=== PATIENT | male | born 1975 | race Hispanic/Latino ===

== ENCOUNTER 2018-12-15 13:11 | Inpatient (IN) | payer OTHER ==
[2018-12-15] VITALS (7 sets, daily range): BP systolic 95–117; BP diastolic 48–63
[~2018-12-15] VITALS: Ht 170.2 cm; Wt 117.5 kg
[2018-12-15] MEDS ORDERED: CEFTRIAXONE SOD 1 GM/NS 50 ML 50 ML IV ONE (13:30)
[2018-12-15] MEDS ORDERED: SODIUM CHLORIDE 0.9% 1000ML 2,000 ML IV STA (13:30)
[2018-12-15] MEDS ORDERED: ACETAMINOPHEN 325 MG TAB PO ONE (13:30)
[2018-12-15] MEDS ORDERED: AZITHROMYCIN 500MG/NS 250 ML 250 ML IV ONE (13:30)
[2018-12-15 13:49] LABS: BASOPHILS % 0.3 % (0.0-1.0); EOSINOPHILS # (AUTO) 0.1 (0.0-0.4); EOSINOPHILS % 0.7 % (0.0-6.0); HEMOGLOBIN 7.4 g/dL (14.0-18.0); LYMPHOCYTES # (AUTO) 0.8 (1.0-3.2); LYMPHOCYTES % 10.7 % (18.0-39.1); MEAN CORPUSCULAR HEMOGLOBIN 29.6 pg (28-32); MEAN CORPUSCULAR HGB CONC 32.2 g/dL (31-35); MONOCYTES # (AUTO) 0.3 (0.2-0.8); MONOCYTES % 3.4 % (4.4-11.3); NEUTROPHILS # (AUTO) 6.3 (2.1-6.9); NEUTROPHILS % 84.1 % (38.7-80.0); PLATELET COUNT 110 x10e3/uL (140-360); RED CELL DISTRIBUTION WIDTH 17.5 % (11.7-14.4)
[2018-12-15 13:52] LABS: BILIRUBIN,URINE SMALL (NEGATIVE); CLARITY,URINE CLEAR (CLEAR); COLOR,URINE YELLOW (YELLOW); KETONES,URINE NEGATIVE (NEGATIVE); LEUKOCYTE ESTERASE ,URINE TRACE (NEGATIVE); NITRITE,URINE NEGATIVE (NEGATIVE); PROTEIN,URINE DIPSTICK 1+ (NEGATIVE); URINE UROBILINOGEN 2 mg/dL (0.2 - 1)
[2018-12-15 14:01] LABS: INR 1.2; PROTHROMBIN TIME 15.8 seconds (11.9-14.5)
[2018-12-15 14:02] LABS: ALBUMIN 2.5 g/dL (3.5-5.0); ALBUMIN/GLOBULIN RATIO 0.6 (0.8-2.0); CALCIUM 8.3 mg/dL (8.4-10.2); CREATININE, SERUM 1.35 mg/dL (0.72-1.25)
[2018-12-15 14:07] LABS: CREATINE KINASE MB 3.1 ng/mL (0-4.3)
[2018-12-15 14:11] LABS: AMORPHOUS SEDIMENT,URINE MODERATE (FEW); BACTERIA,URINE MODERATE /HPF; EPITHELIAL CELLS,URINE FEW /LPF; RBC,URINE 0-5 /HPF (0-5)
--- NOTE | 2018-12-15 14:15 | NUR ---
Patient with NS bolus infusing with antibiotics; VS continuously monitor; SBP 80-90s; will continue to monitor.
--- NOTE | 2018-12-15 14:37 | Diagnostic Imaging Report ---
EXAMINATION: CHEST SINGLE (PORTABLE) INDICATION: Cough COMPARISON: None FINDINGS: LINES/TUBES:EKG leads overlie the chest. LUNGS:The lungs are moderately inflated. No focal consolidation or pulmonary edema. PLEURA:No pleural effusion or pneumothorax. MEDIASTINUM:The cardiomediastinal silhouette is at the upper limits of normal in size. BONES/SOFT TISSUES:No acute osseous injury. ABDOMEN:No free air under the diaphragm. IMPRESSION: No focal pneumonia or pulmonary edema. Signed by: Claire Holliday MD on 12/15/2018 2:34 PM
[2018-12-15] MEDS ORDERED: PANTOPRAZOLE 40 MG 10ML VIAL IV ONE (14:46)
[2018-12-15] MEDS ORDERED: SODIUM CHLORIDE 0.9% 1000ML 1,000 ML IV STA (14:53)
[2018-12-15] MEDS ORDERED: FUROSEMIDE INJ 10 MG/ML 2 ML VIAL IV PRN (15:00)
[2018-12-15] MEDS ORDERED: VANCOMYCIN 1GM/NS 250 ML 250 ML IV ONE (15:00)
[2018-12-15] MEDS ORDERED: SODIUM CHLORIDE 0.9% 250ML 250 ML IV ONE (15:00)
--- NOTE | 2018-12-15 15:11 | NUR ---
Patient resting in bed, VS continuously monitored; BP soft, NS boluses infusing. Will continue to monitor
[2018-12-15] MEDS ORDERED: AZITHROMYCIN 500MG/SOD CHL 0.9% 250ML BAG IV SCH (15:45)
[2018-12-15] MEDS ORDERED: CEFTRIAXONE SOD 1 GRAM/0.9% SOD CHL 50ML BAG IV SCH (15:45)
--- NOTE | 2018-12-15 15:45 | NUR ---
Patient reassessed due to complaints of increased chest heaviness; patient now with b/l crackles in lung bases. Dr. Patel made aware. EKG performed
[2018-12-15] MEDS ORDERED: CEFEPIME 2 GM/NS 0.9% 100 ML 100 ML IV SCH (16:00)
[2018-12-15 16:33] LABS: BASOPHILS % 0.5 % (0.0-1.0); EOSINOPHILS % 0.8 % (0.0-6.0); HEMATOCRIT 18.8 % (38.2-49.6); LYMPHOCYTES # (AUTO) 0.5 (1.0-3.2); LYMPHOCYTES % 14.1 % (18.0-39.1); MEAN CORPUSCULAR HEMOGLOBIN 29.7 pg (28-32); MEAN CORPUSCULAR HGB CONC 31.9 g/dL (31-35); MEAN CORPUSCULAR VOLUME 93.1 fL (81-99); MONOCYTES # (AUTO) 0.2 (0.2-0.8); MONOCYTES % 4.7 % (4.4-11.3); NEUTROPHILS % 79.4 % (38.7-80.0); PLATELET COUNT 64 x10e3/uL (140-360); RED BLOOD COUNT 2.02 x10e6/uL (4.3-5.7); RED CELL DISTRIBUTION WIDTH 17.5 % (11.7-14.4)
--- OUTSIDE RECORDS SUMMARY | 2018-12-15 16:33 | XMS REPORT ---
Author Author [facility] Address Unknown Phone Unavailable Care Team Providers Care Splicing Supervisor Name Role Phone Tre DAVIS Unavailable Unavailable Problems This patient has no known problems. Allergies, Adverse Reactions, Alerts This patient has no known allergies or adverse reactions. Medications This patient has no known medications. Results Test Description Test Time Test Comments Text Results Atomic Results Result Comments CHEST SINGLE (PORTABLE) 2018-12-15 14:33:[address] [address] Patient Name: LONNIE LOPEZ MR #: [id number] : 1975 Age/Sex: 43/M Req #: [id number] Adm Physician: Ordered by: KARINE MEDRANO NP Report #: [id number] Location: ER Room/Bed: Procedure: [id number] DX/CHEST SINGLE (PORTABLE) Exam Date: 12/15/18 Exam Time: 1355 REPORT STATUS: Signed EXAMINATION: CHEST SINGLE (PORTABLE) INDICAT ION: Cough COMPARISON: None FINDINGS: LINES/TUBES:EKG leads overlie the chest. LUNGS:The lungs are moderately inflated. No focal consolidation or pulmonary edema. PLEURA:No pleural effusion or pneumothorax. MEDIASTINUM:The cardiomediastinal silhouette is at the upper limits of normal in size. BONES/SOFT TISSUES:No acute osseous injury. ABDOMEN:No free air under the diaphragm. IMPRESSION: No focal pneumonia or pulmonary edema. Signed by: David Boucher MD on 12/15/2018 2:34 PM Dictated By: DAVID BOUCHER MD [id number] Transcribed By: VIPUL on 12/15/18 1434 COPY TO: KARINE MEDRANO NP
--- NOTE | 2018-12-15 16:45 | NUR ---
Central line placement attempted by Dr. Patel; patient unable to tolerate positioning. IR consulted
--- NOTE | 2018-12-15 17:05 | NUR ---
Bedside report to SHIRIN Bradford; patient condition guarded at this time; Patient AOx4, able to transfer to bed. Tachypneic, RR 28; Blood consent sent with patient due to unable to complete. No questions at this time.
--- NOTE | 2018-12-15 17:13 | Diagnostic Imaging Report ---
EXAM: CT Chest WITH contrast- Pulmonary Embolism Protocol INDICATION: Shortness of breath, chest pain COMPARISON: Chest radiograph of the same day TECHNIQUE: Chest was scanned utilizing a multidetector helical scanner from the lung apex through the level of the diaphragm after administration of IV contrast. Thin section reconstructions were obtained with special concentration on the pulmonary arteries. Coronal and sagittal reformations were obtained. Pulmonary embolism protocol was performed. IV CONTRAST: 100 cc of Isovue 370 RADIATION DOSE: Total DLP: 572.4 mGy*cm Dose modulation, iterative reconstruction, and/or weight based adjustment of the mA/kV was utilized to reduce the radiation dose to as low as reasonably achievable. COMPLICATIONS: None FINDINGS: LINES/ TUBES: None. PULMONARY ARTERIES: No filling defect is identified within the pulmonary arteries to the segmental level. The subsegmental pulmonary arteries are not well opacified. Main pulmonary artery measures 3.2cm in diameter. LUNGS AND AIRWAYS: The central airways are patent. Diffuse bilateral groundglass opacities and smooth interlobular septal thickening consistent with interstitial and air space pulmonary edema. No focal consolidation. PLEURA: Small right pleural effusion. No left pleural effusion. No pneumothorax. HEART AND MEDIASTINUM: Partially visualized are gland appears unremarkable. No supraclavicular lymphadenopathy. No mediastinal or hilar lymphadenopathy. No axillary or internal mammary lymphadenopathy. The heart is mildly enlarged.. No pericardial effusion. Scattered atherosclerotic calcifications of the coronary arteries. No evidence of right heart strain. UPPER ABDOMEN: Limited images of the upper abdomen demonstrate no focal abnormalities of the partially visualized liver or spleen. Other intra-abdominal organs are not visualized. BONES: No acute osseous injury. No suspicious lytic or blastic lesions. SOFT TISSUES: Unremarkable. IMPRESSION: No pulmonary embolism. Severe interstitial and airspace pulmonary edema, mild cardiomegaly, and small right pleural effusion. Scattered coronary artery atherosclerotic calcifications. Signed by: Claire Holliday MD on 12/15/2018 5:10 PM
[2018-12-15] MEDS ORDERED: NOREPINEPHRINE 8 MG/D5W 250 ML 250 ML IV PRN (17:15)
--- NOTE | 2018-12-15 17:15 | NUR ---
RECEIVED PT AAOX3 AND RESPONDING APPROPRIATELY, CONSENT FOR BLOOD AND CENTRAL LINE SIGNED AT THIS TIME
[2018-12-15 17:24] LABS: CREATINE KINASE MB 4.1 ng/mL (0-5.0)
--- NOTE | 2018-12-15 17:30 | NUR ---
RADIOLOGY AT BEDSIDE CENTRAL LINE BEING DONE
[2018-12-15 17:44] LABS: HIV 1&2 AB SCREEN NON-REACTIVE (NONREACTIVE)
--- NOTE | 2018-12-15 18:10 | NUR ---
CONSULTS CALLED TO CONSULEO GROSSMAN AND LEFT FOR ELEVATED TROPONIN AND NEW CONSULT
--- NOTE | 2018-12-15 18:14 | Diagnostic Imaging Report ---
Examination: Single AP view of the chest. COMPARISON: None. INDICATION: Line placement DISCUSSION: Lines/tubes: Right IJ catheter with tip overlying the cavoatrial junction. Lungs: Pulmonary edema Pleura: No pleural effusion or pneumothorax. Heart and mediastinum: The heart and the mediastinum are unremarkable. Bones and soft tissues: No acute bony abnormalities. IMPRESSION: Pulmonary edema Right IJ catheter with tip overlying the cavoatrial junction Signed by: Dr. Ryan Alvarenga M.D. on 12/15/2018 6:11 PM
[2018-12-15 18:17] LABS: % IRON SATURATION 11 % (15-50); IRON 22 ug/dL (65-175); TOTAL IRON BINDING CAPACITY 197 ug/dL (261-478); TRANSFERRIN 141 mg/dL (174-364)
[2018-12-15] MEDS: PANTOPRAZOLE 40 MG 10ML VIAL IV SCH (18:33)
[2018-12-15] MEDS: SODIUM CHLORIDE 0.9% 1000ML 1,000 ML IV SCH (18:33)
[2018-12-15] MEDS ORDERED: FUROSEMIDE INJ 10 MG/ML 2 ML VIAL IV ONE (18:45)
[2018-12-15 18:54] LABS: ABG HCO3 20 mmol/L (23-28); ABG PCO2 29 mmHg (41-51); ABG PH 7.45 (7.31-7.41); ABG PO2 60 mmHg (80-105)
[2018-12-15] MEDS: METOPROLOL TARTRATE 25 MG TAB PO SCH (19:00)
--- NOTE | 2018-12-15 19:00 | NUR ---
Bedside report received from Lorena CARPIO. Pt received sitting up in bed AAOx3, no pain or discomfort reported at this time. Care plan reviewed.
--- NOTE | 2018-12-15 19:25 | NUR ---
Dr. Farrell returned called. Pt status discussed. New orders received (refer to food service order clerk as needed for further information).
[2018-12-15] MEDS: CEFTRIAXONE SOD 1 GM/NS 50 ML 50 ML IV SCH (19:30)
[2018-12-15] MEDS: VANCOMYCIN HCL 1.5 GM in SODIUM CHLORIDE 0.9% 250ML 300 ML IV SCH (19:41)
[2018-12-15] MEDS ORDERED: SODIUM CHLORIDE 0.9% 250ML 250 ML ONE (19:57)
[2018-12-15 20:49] LABS: HYPOCHROMASIA MODERATE; LYMPHOCYTES % (MANUAL) 10 % (19-48); MONOCYTES % (MANUAL) 5 % (3.4-9.0); NEUTROPHILS % (MANUAL) 82 % (40-74); PLATELET ESTIMATE SLIGHTLY DECREASED; PLATELET MORPHOLOGY COMMENT NORMAL; RBC MORPHOLOGY COMMENT NORMAL
[2018-12-15 21:00] LABS: RETICULOCYTE % 4.4 % (0.8-2.2)
[2018-12-15] MEDS ORDERED: SODIUM CHLORIDE 0.9% 50ML 50 ML ONE (22:34)
[2018-12-15] MEDS ORDERED: IOPAMIDOL 370 MG/ML 200 ML INFUS..BTL INJ ONE (22:34)
--- NOTE | 2018-12-15 23:51 | Consultation ---
DATE OF CONSULTATION: Pulmonary Consultation HISTORY OF PRESENT ILLNESS: Patient of Dr. Vicente, Dr. Josh Brandon, Dr. Pardo. 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 PAST MEDICAL HISTORY: History of hypertension. SOCIAL HISTORY: History of alcohol use, quit 4 months ago. Drinks 6 beers on the weekends. PAST SURGICAL HISTORY: He has a history of tendon repair approximately 6 months ago . FAMILY HISTORY: Positive for diabetes. He was born in [place]. PHYSICAL EXAMINATION: GENERAL: Well-developed, white male, looking older than his stated age, sallow complexion, pale. VITAL SIGNS: Temperature 100, pulse 106, blood pressure 95/86. HEAD: Normocephalic and atraumatic. EYES: Extraocular movements intact. NECK: Trachea midline. LUNGS: Bilateral rales. HEART: Regular rhythm. ABDOMEN: Nontender. EXTREMITIES: Nonedematous. IMPRESSION: Endocarditis. Consider Infectious Disease for opinion. Echocardiogram is pending. Cardiology is seeing the patient. The patient will require ICU care and long-term IV antibiotic therapy. Jasmeet Eastman MD DS/MODL /[id number]
[2018-12-16] VITALS (25 sets, daily range): BP systolic 90–115; BP diastolic 35–85
[2018-12-16] MEDS ORDERED: SODIUM CHLORIDE 0.9% 250ML 250 ML ONE (00:30)
--- NOTE | 2018-12-16 00:59 | NUR ---
Pt has fever of 100.[address] Eastman paged (through his answering service) at this time and currently awaiting his return call.
--- NOTE | 2018-12-16 01:01 | Consultation ---
DATE OF CONSULTATION: 12/15/2018 Cardiology Consultation REASON FOR CONSULTATION: Congestive heart failure. HISTORY: Mr. Mcgregor is a 43-year-old gentleman with a history of increasing shortness of breath, fever, weight loss, hypotension, who was being evaluated at [facility], comes in with these complaints. He had sinus tachycardia at the time of admission. Hemoglobin is 6. Serum creatinine is 1.35. BNP is 1320. WBC count of 3800. CT scan suggestive of pulmonary edema and no evidence of pulmonary embolus. Echocardiogram was reviewed at bedside and shows severe aortic valve insufficiency, dilated left ventricle, mild systolic heart failure with vegetations on the aortic valve. PAST MEDICAL HISTORY: None. SOCIAL HISTORY: The patient does not smoke or drink. ALLERGIES: NO KNOWN DRUG ALLERGIES. MEDICATIONS: Reviewed. REVIEW OF SYSTEMS: Negative except as dictated in the history of present illness. PHYSICAL EXAMINATION: VITAL SIGNS: Afebrile. Heart rate is 106, blood pressure 83/46, O2 saturation is 88%. CARDIOVASCULAR: Regular rhythm, tachycardic. Systolic and diastolic murmur. LUNGS: Crackles bilaterally. ABDOMEN: Mildly distended. 1+ edema. LABORATORY DATA: Labs, EKG, echocardiogram, CT scan were reviewed and as described above. ASSESSMENT: 1. Acute systolic heart failure. 2. 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 RECOMMENDATION: Gentle diuresis, transfusion of blood as well as initiation of broad-spectrum antibiotics. Infectious Disease consult. The patient will require transesophageal echo and cardiac catheterization. I have discussed his care with Dr. Gross at [facility] in the [facility] for possible transfer in the near future for aortic valve replacement. Overall prognosis is critical. I thank Dr. Brandon for this consultation. MD JANELLE Wagner/ZAYRA /[id number]
[2018-12-16] MEDS: SODIUM CHLORIDE 0.9% 1000ML 1,000 ML IV SCH ×3 (01:39→19:02)
--- NOTE | 2018-12-16 02:05 | NUR ---
Spoke with , refer to provider notification documentation under interventions for further information.
[2018-12-16] MEDS ORDERED: FUROSEMIDE INJ 10 MG/ML 2 ML VIAL IV ONE ×2 (02:15→14:00)
[2018-12-16] MEDS ORDERED: VANCOMYCIN 1GM/NS 250 ML 250 ML IV SCH (03:00)
[2018-12-16 04:26] LABS: BASOPHILS % 0.2 % (0.0-1.0); EOSINOPHILS % 0.2 % (0.0-6.0); HEMATOCRIT 24.1 % (38.2-49.6); HEMOGLOBIN 7.7 g/dL (14.0-18.0); LYMPHOCYTES # (AUTO) 0.6 (1.0-3.2); LYMPHOCYTES % 10.9 % (18.0-39.1); MEAN CORPUSCULAR HEMOGLOBIN 29.5 pg (28-32); MEAN CORPUSCULAR VOLUME 92.3 fL (81-99); MONOCYTES # (AUTO) 0.3 (0.2-0.8); MONOCYTES % 5.7 % (4.4-11.3); NEUTROPHILS # (AUTO) 4.6 (2.1-6.9); NEUTROPHILS % 82.5 % (38.7-80.0); PLATELET COUNT 90 x10e3/uL (140-360); RED BLOOD COUNT 2.61 x10e6/uL (4.3-5.7); RED CELL DISTRIBUTION WIDTH 16.9 % (11.7-14.4)
[2018-12-16 05:05] LABS: ALANINE AMINOTRANSFERASE 21 IU/L (0-55); ALBUMIN 2.2 g/dL (3.5-5.0); ALBUMIN/GLOBULIN RATIO 0.6 (0.8-2.0); ALKALINE PHOSPHATASE 54 IU/L (40-150); ANION GAP 15.2 mmol/L (8-16); BLOOD UREA NITROGEN 21 mg/dL (7-26); BUN/CREATININE RATIO 19 (6-25); CALCIUM 7.2 mg/dL (8.4-10.2); CARBON DIOXIDE 18 mmol/L (22-29); CHLORIDE 103 mmol/L (98-107); CREATININE, SERUM 1.11 mg/dL (0.72-1.25); EST GLOMERULAR FILTRATION RATE > 60 ML/MIN (60-); GLUCOSE 114 mg/dL (74-118); POTASSIUM 4.2 mmol/L (3.5-5.1); SODIUM 132 mmol/L (136-145)
[2018-12-16 05:12] LABS: CREATINE KINASE MB 2.9 ng/mL (0-5.0)
[2018-12-16 05:32] LABS: INR 1.32
--- NOTE | 2018-12-16 06:14 | Diagnostic Imaging Report ---
EXAMINATION: CHEST SINGLE (PORTABLE) INDICATION: Pneumonia COMPARISON: Chest radiograph 12/15/2018 FINDINGS: AP view TUBES and LINES: Unchanged right IJ central venous catheter, tip projects in the low SVC.. LUNGS: Persistent bilateral fluffy hazy airspace opacities. PLEURA: No pleural effusion or pneumothorax. HEART AND MEDIASTINUM: The cardiomediastinal silhouette is unremarkable. BONES AND SOFT TISSUES: No acute osseous lesion. Soft tissues are unremarkable. UPPER ABDOMEN: No free air under the diaphragm. IMPRESSION: Persistent bilateral airspace disease, pulmonary edema or pneumonia are considerations. Signed by: Dat Manzanares DO on 12/16/2018 6:10 AM
--- NOTE | 2018-12-16 07:00 | NUR ---
Bedside report given to Maddie Damian RN. Care plan reviewed.
[2018-12-16] MEDS ORDERED: POLYSACCARIDE IRON COMPLEX 150 MG CAP PO SCH (09:00)
[2018-12-16] MEDS: METOPROLOL TARTRATE 25 MG TAB PO SCH ×2 (09:15→17:00)
[2018-12-16] MEDS: PANTOPRAZOLE 40 MG 10ML VIAL IV SCH ×2 (09:48→17:39)
[2018-12-16] MEDS: CEFTRIAXONE SOD 1 GM/NS 50 ML 50 ML IV SCH ×2 (09:48→19:01)
[2018-12-16] MEDS: VANCOMYCIN HCL 1.5 GM in SODIUM CHLORIDE 0.9% 250ML 300 ML IV SCH ×2 (09:49→20:38)
[2018-12-16] MEDS: ACETAMINOPHEN 325 MG TAB PO PRN (09:50)
[2018-12-16] MEDS: HEPARIN SOD (PORCINE) 5,000 UNIT/ML VIAL SC SCH ×2 (10:30→20:42)
--- NOTE | 2018-12-16 11:04 | NUR ---
Nutrition Intervention Note RD Recommendation(s) for Physician:Advance diet as tolerated to a cardiac diet Plan of Care: RD following, monitoring for tolerance and adequacy Nutrition reason for involvement: Nutrition Risk Trigger RD Assessment Initial encounter with patient. Diet Hx: Pt has no known food allergies. Physical activity and function: Pt is able to walk. Nutrition - focused physical findings: Pt is dentate, overweight/obesity, 50 pound wt loss over past 4 months. 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 Principal Problems/Diagnoses:anemia, hyponatremia, hypotension PMH: None GI:Non tender, no nausea or vomiting Skin: Intact skin Labs: (12/16/2018) Na 132 Meds: (12/16/18) MAR reviewed Ht:67 in. Wt:240.13lbs BMI:37.6kg/M2 IBW:148lbs Malnutrition Evaluation (12/16/2018) The patient meets criteria for MODERATE protein-calorie malnutrition. Energy intake: <75% of estimated energy requirements for >3 months Weight loss: >7.5% in 3 months (Acute) Fat loss: unable to evaluate Muscle loss: unable to evaluate Supporting Evidence: Fluid accumulation: None Functional Status: unable to evaluate Nutrition Prescription (Diet Order): NPO Estimated Nutritional Needs: 2183 calories/day (20 kcal/kg/BW) 135g protein/day ( 2g pro/kg/IBW) Diet Adequacy: Meeting fluid needs, Not meeting calorie needs, Not meeting protein needs Diet Education Needs Assessment: Diet education not indicated, patient on temporary/transition diet. Nutrition Care Level: Moderate Nutrition Diagnosis: Malnutrition related to acute illness as evidenced by 50# involuntary wt loss. Goal: Patient will meet 75-100% of estimated needs by follow up Progress: Not Progressing Interventions: Initiate modified diet, IVF, Prescription medications Monitoring/Evaluation: Total energy intake, Total protein intake, IVF, Prescription medication, Modified diet, Weight change Signed: Reynaldo Lozano RD, LD, [facility]
--- NOTE | 2018-12-16 12:44 | Progress Note ---
DATE: 12/16/2018 SUBJECTIVE: Mr. Mcgregor is currently in the intensive care unit. His at the bedside. REVIEW OF SYSTEMS: He is feeling better. There are no new complaints. PHYSICAL EXAMINATION: GENERAL: He is currently alert, oriented. VITAL SIGNS: His T-max is 100.8. HEENT: Normocephalic, not icteric. NECK: Supple. No JVD. No lymphadenopathy. No thyromegaly. CHEST: Clear bilateral. HEART: S1, S2. No S3, S4, or murmur. ABDOMEN: Soft. Bowel sounds present. No tenderness. EXTREMITIES: No edema. SKIN: There is no rash. LABORATORY DATA: His blood cultures from the is negative, from are still pending. His sodium today 132, potassium 4.2, creatinine came down to 1.1. His troponin was 1.98. His white count is 5.2, hemoglobin 7.7 with platelets of 90. His sedimentation rate is 93 and his retic was 4.4. IMPRESSION: 1. Endocarditis, pathogen still pending. 2. Sepsis seems to be better. 3. Acute kidney injury, better. Again discussed with the patient and his . Also discussed with Dr. Eastman earlier. Continue with vancomycin. Continue with Rocephin. Recheck CBC. Thrombocytopenia (due to endocarditis). Anemia, probably hemolytic also due to endocarditis. We will get a CT of the abdomen and pelvis. The plan is for him to be transferred to [facility]. Discussed with Dr. Pardo. We will follow. MD BONNIE Magallanes/ZAYRA /[id number]
[2018-12-16] MEDS ORDERED: CEFTRIAXONE SOD 1 GM/NS 50 ML 50 ML IV SCH (13:00)
--- NOTE | 2018-12-16 13:23 | Progress Note ---
DATE: Cardiology Progress Note SUBJECTIVE: The patient complains of cough and also some shortness of breath and weakness. Denies any chest pain or palpitations. OBJECTIVE: VITAL SIGNS: Temperature 100.8, pulse 109, respiratory rate 38, blood pressure 111/52, and oxygen saturation 98% on 3 L nasal cannula. GENERAL: Alert and oriented x3. Resting comfortably in bed. at the bedside. Does not appear to be in any acute distress. NECK: Supple. No JVD noted. CARDIOVASCULAR: Regular rate and rhythm. Tachycardic. Normal S1, S2. A 3/6 systolic murmur present. LUNGS: Diminished breath sounds in posterior lower lobes with fine crackles. No wheezing or rhonchi noted. ABDOMEN: Soft, nontender. EXTREMITIES: Lower extremity trace edema bilaterally. 2+ pedal pulses. CARDIOVASCULAR MEDICATIONS: Heparin 5000 units subcu every 12 hours, metoprolol 25 mg p.o. b.i.d. LABORATORY DATA: WBC 5.62, hemoglobin 7.7, hematocrit 24.1, platelets 90. Sodium 132, potassium 4.2, BUN 21, creatinine 1.1. GFR greater than 60. Troponin 1.982, CK-MB 2.90, creatine kinase 54. Chest x-ray with persistent bilateral airspace disease, pulmonary edema, or pneumonia should be considered. TELEMETRY: Sinus tachycardia. ASSESSMENT: 1. Acute systolic heart failure. 2. 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 3. Anemia. PLAN: Continue gentle diuresis. The patient is status post 2 PRBCs yesterday. We will continue to follow patient closely. We have consulted Infectious Disease for management of endocarditis. This patient will require VALERIY and cardiac catheterization during this hospital stay. We have discussed the case with Dr. Gross at [facility]. The patient will require possible transfer in the near future or during the course of this hospital stay for aortic valve replacement. Overall, we will monitor this patient closely. Guarded prognosis. Dictated by Winter Falk, DAVID MD IZZY WagnerV/FRANCIEL /[id number]
[2018-12-16] MEDS ORDERED: AZITHROMYCIN 500MG/NS 250 ML 250 ML IV SCH (14:00)
--- NOTE | 2018-12-16 15:09 | NUR ---
rec'd order per Dr. Eastman to hold Iron until after collecting occult stool.
--- NOTE | 2018-12-16 16:24 | Progress Note ---
DATE: Internal Medicine Progress Note SUBJECTIVE: The patient has no complaints today. PHYSICAL EXAMINATION: VITAL SIGNS: Blood pressure is 105/43, temperature is 98.6, heart rate is 117 per minute, respiratory rate 38 per minute, oxygen saturation is 98%. HEART: Regular rhythm. Normal S1, S2 sound. LUNGS: Clear bilaterally. ABDOMEN: Soft. EXTREMITIES: Show no evidence of cyanosis, edema, or trauma. DIAGNOSES: 1. Aortic insufficiency, most likely due to the endocarditis. 2. Hypotension, most likely secondary to sepsis. 3. Acute systolic congestive heart failure, most likely induced by aortic insufficiency. 4. Acute anemia. PLAN OF TREATMENT: Continue Levophed as needed to for hypotension, ceftriaxone 2 g IV twice a day, vancomycin 1 g IV twice a day. Continue normal saline. We are going to decrease at 70 mL an hour because of the concern of CHF. Lasix 20 mg IV push one time, Protonix 40 mg twice a day, metoprolol 25 mg twice a day for heart rate control, Tylenol 650 mg q.6 hours as needed for pain and fever. Continue ferrous hydroxide sucrose complex 150 mg. Continue heparin 5000 units subcutaneous twice a day for DVT prophylaxis. Continue monitoring BUN and creatinine electrolytes. Continue monitoring CBC. The patient is going to most likely go to a custodial care hospital if accepted. The patient is in the critical care unit right now. I discussed the case with the staff. X-ray has been reviewed. List of medication has been reviewed. Labs have been reviewed. Vital signs have been reviewed. Consult notes also have been reviewed. Dr. Eastman is on the case from Pulmonary, Dr. Farrell for Infectious Disease. Dr. Jj Pardo from Cardiology. His recommendation is not to do any valve replacement until the patient is free of infection of course. Time spent 60 minutes. The patient will remain in the ICU due to his unstable condition. MD LEXI Monteiro/ZAYRA /[id number]
--- NOTE | 2018-12-16 19:05 | Consultation ---
DATE OF CONSULTATION: 12/15/2018 HISTORY OF PRESENT ILLNESS: Mr. Mcgregor is a very pleasant 43-year-old gentleman, who apparently had no past medical history. He has been sick for the last few months. He has been having fever, chills, cough. The patient went to see his physician. He was given a prescription for oral antibiotic. He got a little better, but he continued to feel really bad. He went back again, took another course of oral antibiotic without any improvement. The patient he lost weight, he was just feeling fever and chills, so he was told to come back to the emergency room. In the emergency room, the patient was seen and examined. He had an echocardiogram, which showed there was an aortic valve endocarditis and I was contacted by the ER physician as well as by Dr. Pardo. The patient was seen and examined and discussed with Dr. Pardo. The patient who has been having fever, chills, weight loss, when he went to the emergency room, he was hypotensive. He came here, his hemoglobin was 6. His serum creatinine was 1.35. BNP 1320 and WBC of 3800. A CAT scan was suggestive of pulmonary edema, but no evidence of embolus. An echocardiogram at the bedside showed severe aortic valve insufficiency with dilated left ventricle with mild systolic heart failure and agitation of the aortic valve. The patient was started immediately on vancomycin and Rocephin. Blood cultures ordered. Please refer to the lab. The patient is telling me he has been sick for a while as mentioned above. PAST MEDICAL HISTORY: He denies. PAST SURGICAL HISTORY: He denies. ALLERGIES: NKA. SOCIAL HISTORY: There is no smoking, drug abuse, or alcohol abuse. 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 No travel. No hunting. No camping. MEDICATIONS: At home as mentioned above. He was on just antibiotic. REVIEW OF SYSTEMS: GENERAL: He is just not feeling well. He has been running fever and chills on and off. He has lost weight. HEENT: There is no headache, visual changes, or hearing changes. : Negative. GI: Negative. SKIN: There is no other rash. All other systems within normal limit. LABORATORY DATA: Reviewed as mentioned above. His white count was 7.6, hemoglobin of 7.4, and with a platelet of 110. Repeat showed a hemoglobin was 6 and his platelet was 54. His sodium was 133, potassium 4.2, and liver enzyme in normal limit. PHYSICAL EXAMINATION: GENERAL: He is currently alert, oriented, does not seem to be in acute distress. VITAL SIGNS: Stable, currently afebrile. He had earlier 100.8 with a heart rate of 117, blood pressure of 107/55. HEENT: Normocephalic, not icteric. NECK: Supple. No JVD. No lymphadenopathy. No thyromegaly. CHEST: Clear bilateral. HEART: S1, S2. He did have a systolic ejection murmur as mentioned above. ABDOMEN: Soft. Bowel sounds present. No tenderness. EXTREMITIES: No edema. IMPRESSION: 1. Endocarditis. There is a good chance we may not get the bacteria. 2. I would recommend to put patient on vancomycin and Rocephin to keep the vancomycin trough between 15 to 20. We would need 8 weeks of IV antibiotic. 3. Aortic valve vegetation with insufficiency. Vascular Surgery evaluation, there is a good chance the patient would need valve replacement. The timing is depending on his clinical progress. 4. We will recheck blood culture surveillance. 5. We will also obtain sedimentation rate, C-reactive protein. 6. Of note, examination of his teeth did not reveal he had bad teeth and . 7. Discussed with Dr. Pardo. Discussed with ER physician. Discussed with the patient. We will follow. MD BONNIE Magallanes/ZAYRA /[id number]
[2018-12-17] VITALS (25 sets, daily range): BP systolic 90–112; BP diastolic 44–69
[2018-12-17 05:06] LABS: BASOPHILS % 0.3 % (0.0-1.0); EOSINOPHILS # (AUTO) 0.2 (0.0-0.4); EOSINOPHILS % 2.3 % (0.0-6.0); HEMATOCRIT 25.4 % (38.2-49.6); HEMOGLOBIN 7.9 g/dL (14.0-18.0); LYMPHOCYTES # (AUTO) 0.9 (1.0-3.2); LYMPHOCYTES % 12.5 % (18.0-39.1); MEAN CORPUSCULAR HEMOGLOBIN 29.7 pg (28-32); MEAN CORPUSCULAR HGB CONC 31.1 g/dL (31-35); MEAN CORPUSCULAR VOLUME 95.5 fL (81-99); MONOCYTES # (AUTO) 0.4 (0.2-0.8); MONOCYTES % 5.2 % (4.4-11.3); NEUTROPHILS # (AUTO) 5.8 (2.1-6.9); NEUTROPHILS % 79.2 % (38.7-80.0); PLATELET COUNT 102 x10e3/uL (140-360); RED BLOOD COUNT 2.66 x10e6/uL (4.3-5.7); RED CELL DISTRIBUTION WIDTH 17.5 % (11.7-14.4)
[2018-12-17 05:25] LABS: ALANINE AMINOTRANSFERASE 17 IU/L (0-55); ALBUMIN 2.1 g/dL (3.5-5.0); ALBUMIN/GLOBULIN RATIO 0.6 (0.8-2.0); ALKALINE PHOSPHATASE 51 IU/L (40-150); ANION GAP 14.9 mmol/L (8-16); BLOOD UREA NITROGEN 21 mg/dL (7-26); BUN/CREATININE RATIO 22 (6-25); CALCIUM 7.5 mg/dL (8.4-10.2); CARBON DIOXIDE 19 mmol/L (22-29); CHLORIDE 104 mmol/L (98-107); CREATININE, SERUM 0.94 mg/dL (0.72-1.25); EST GLOMERULAR FILTRATION RATE > 60 ML/MIN (60-); GLUCOSE 94 mg/dL (74-118); POTASSIUM 3.9 mmol/L (3.5-5.1); SODIUM 134 mmol/L (136-145)
[2018-12-17] MEDS: CEFTRIAXONE SOD 1 GM/NS 50 ML 50 ML IV SCH ×2 (07:25→20:18)
--- NOTE | 2018-12-17 07:29 | Diagnostic Imaging Report ---
EXAMINATION: CHEST SINGLE (PORTABLE) INDICATION: ^chf ^[id number] ^[id number] COMPARISON: 12/16/2018 and 12/15/2018 FINDINGS: AP view TUBES and LINES: Stable right IJ central venous catheter with tip overlying the cavoatrial junction. LUNGS: Lungs are well inflated. Slight improvement in bilateral pulmonary edema. Bibasilar atelectasis. PLEURA: No pleural effusion or pneumothorax. HEART AND MEDIASTINUM: Stable mild enlargement of the cardiac silhouette. BONES AND SOFT TISSUES: No acute osseous lesion. Soft tissues are unremarkable. UPPER ABDOMEN: No free air under the diaphragm. IMPRESSION: Interval slight improvement in the bilateral pulmonary edema. Signed by: Dr. Rissa Gallegos M.D. on 12/17/2018 7:26 AM
[2018-12-17] MEDS: PANTOPRAZOLE 40 MG 10ML VIAL IV SCH ×2 (08:32→17:33)
[2018-12-17] MEDS: VANCOMYCIN HCL 1.5 GM in SODIUM CHLORIDE 0.9% 250ML 300 ML IV SCH (08:33)
[2018-12-17] MEDS: HEPARIN SOD (PORCINE) 5,000 UNIT/ML VIAL SC SCH ×2 (08:43→21:56)
[2018-12-17] MEDS ORDERED: METOPROLOL TARTRATE 25 MG TAB PO ONE (10:30)
--- NOTE | 2018-12-17 13:34 | Progress Note ---
DATE: Cardiology Progress Note SUBJECTIVE: The patient reports improvement in shortness of breath and denies chest pain, however, he still continues to have some orthopnea. OBJECTIVE: VITAL SIGNS: Temperature 98.6, pulse 105, respiratory rate 26, blood pressure 97/64, and oxygen saturation 98% on 3 L nasal cannula. GENERAL: Alert and oriented x3. Resting comfortably in bed. No acute distress. at the bedside. NECK: Supple. No JVD noted. CARDIOVASCULAR: Regular rate and rhythm. Tachycardic. Normal S1 and S2. A 3/6 systolic murmur present. LUNGS: Diminished breath sounds posterior lower lobes with fine crackles. No wheezing. No rhonchi. ABDOMEN: Soft and nontender. EXTREMITIES: Lower extremity, 2+ pedal pulses bounding. No edema. CARDIOVASCULAR MEDICATIONS: Heparin 5000 units subcutaneous q.12 and metoprolol 12.5 mg p.o. b.i.d. LABORATORY DATA: WBC 7.37, hemoglobin 7.9, hematocrit 25.4, and platelets 102. Sodium 134, potassium 39, BUN 21, and creatinine 0.94. Chest x-ray with interval slight improvement in bilateral pulmonary edema. IMPRESSION: 1. Acute systolic heart failure. 2. 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 3. Anemia. PLAN: Continue the above-listed cardiac medication. Continue antimicrobial therapy per Infectious Disease. The patient is status post 2 PRBCs yesterday. Continue to monitor H and H closely. Once this patient is able to lay down and his orthopnea is resolved, the plan is for VALERIY and left heart catheterization during this hospital stay. After that, the patient will be transferred downtown under the care of Dr. Kasia Gross for continued care and a possible aortic valve replacement. Monitor the patient closely and maintain on telemetry at all times. Dictated by Winter Falk NP MD SEGUN Wagner/ZAYRA /[id number]
--- NOTE | 2018-12-17 14:08 | Progress Note ---
DATE: Internal Medicine Progress Note SUBJECTIVE: The patient is feeling better today. PHYSICAL EXAMINATION: HEART: Showed regular rhythm. Normal S1, S2 sound. LUNGS: Clear bilaterally. ABDOMEN: Soft. EXTREMITIES: Show no evidence of cyanosis, edema, or trauma. VITAL SIGNS: Blood pressure 98/54, temperature 98.7, heart rate 108 per minute, respiratory rate is 28 per minute, and oxygen saturation 100%. LABORATORY DATA: On the BMP; sodium 134, potassium 3.9, chloride 104, CO2 of 19, BUN 21, creatinine 0.94, glucose 94. On the CBC; white blood count 7.37, hemoglobin 7.9, hematocrit 25.4, and platelet count 102,000. PT 17.0, INR 1.32, PTT 33.0. AST 20, ALT 17, total bilirubin 0.9, alkaline phosphatase 51. IMPRESSION: 1. Acute bacterial endocarditis. 2. Aortic insufficiency, secondary to bacterial endocarditis. 3. Hypotension. 4. Sepsis. 5. Acute systolic congestive heart failure. 6. Acute anemia. PLAN OF TREATMENT: Continue ceftriaxone 2 g IV daily, vancomycin 1 g IV twice a day. Continue with normal saline at 70 mL an hour, Protonix 40 mg twice a day, ferrous hydroxide sucrose complex 150 mg twice a day. Continue heparin 5000 units subcutaneous twice a day for deep venous thrombosis prophylaxis, metoprolol 12.5 mg twice a day. The patient will continue antibiotics. He is going to be evaluated for long-term [facility] and after that evaluation for aortic valve replacement. MD LEXI Monteiro/ZAYRA /[id number]
[2018-12-17] MEDS: SODIUM CHLORIDE 0.9% 1000ML 1,000 ML IV SCH (15:28)
[2018-12-17] MEDS: METOPROLOL TARTRATE 25 MG TAB PO SCH (17:34)
[2018-12-17] MEDS: DOCUSATE SODIUM 100 MG CAP PO PRN (18:22)
[2018-12-17] MEDS: VANCOMYCIN 1GM/NS 250 ML 250 ML IV SCH (21:52)
[2018-12-18] VITALS (25 sets, daily range): BP systolic 87–106; BP diastolic 37–54
[2018-12-18 04:53] LABS: BASOPHILS % 0.3 % (0.0-1.0); EOSINOPHILS # (AUTO) 0.2 (0.0-0.4); EOSINOPHILS % 2.7 % (0.0-6.0); HEMATOCRIT 24.1 % (38.2-49.6); HEMOGLOBIN 7.7 g/dL (14.0-18.0); LYMPHOCYTES # (AUTO) 0.7 (1.0-3.2); LYMPHOCYTES % 11.4 % (18.0-39.1); MEAN CORPUSCULAR HEMOGLOBIN 30.6 pg (28-32); MEAN CORPUSCULAR VOLUME 95.6 fL (81-99); MONOCYTES # (AUTO) 0.3 (0.2-0.8); MONOCYTES % 4.5 % (4.4-11.3); NEUTROPHILS # (AUTO) 5.1 (2.1-6.9); NEUTROPHILS % 80.5 % (38.7-80.0); PLATELET COUNT 97 x10e3/uL (140-360); RED BLOOD COUNT 2.52 x10e6/uL (4.3-5.7); RED CELL DISTRIBUTION WIDTH 17.7 % (11.7-14.4)
[2018-12-18 05:13] LABS: ANION GAP 10.9 mmol/L (8-16); BLOOD UREA NITROGEN 17 mg/dL (7-26); BUN/CREATININE RATIO 21 (6-25); CALCIUM 7.8 mg/dL (8.4-10.2); CARBON DIOXIDE 21 mmol/L (22-29); CHLORIDE 103 mmol/L (98-107); CREATININE, SERUM 0.82 mg/dL (0.72-1.25); EST GLOMERULAR FILTRATION RATE > 60 ML/MIN (60-); GLUCOSE 104 mg/dL (74-118); POTASSIUM 3.9 mmol/L (3.5-5.1); SODIUM 131 mmol/L (136-145)
[2018-12-18] MEDS: SODIUM CHLORIDE 0.9% 1000ML 1,000 ML IV SCH ×2 (05:38→20:17)
[2018-12-18] MEDS: ACETAMINOPHEN 325 MG TAB PO PRN (05:39)
[2018-12-18] MEDS: CEFTRIAXONE SOD 1 GM/NS 50 ML 50 ML IV SCH ×2 (07:46→20:21)
[2018-12-18] MEDS: PANTOPRAZOLE 40 MG 10ML VIAL IV SCH ×2 (08:35→16:06)
[2018-12-18] MEDS: VANCOMYCIN 1GM/NS 250 ML 250 ML IV SCH ×2 (08:36→21:17)
[2018-12-18] MEDS: HEPARIN SOD (PORCINE) 5,000 UNIT/ML VIAL SC SCH ×2 (08:36→21:17)
[2018-12-18] MEDS: METOPROLOL TARTRATE 25 MG TAB PO SCH ×2 (09:00→17:00)
--- NOTE | 2018-12-18 09:15 | Diagnostic Imaging Report ---
PROCEDURE: Non-tunneled central venous catheter placement Procedural Personnel Attending physician(s): Claire Holliday MD Fellow physician(s): None Resident physician(s): None Advanced practice provider(s): None Pre-procedure diagnosis: Hypotension Post-procedure diagnosis: Same Indication: Administration of intravenous medications Additional clinical history: None Complications: No immediate complications. IMPRESSION: Insertion of right-sided non-tunneled triple-lumen temporary central venous catheter. Plan: Portable chest radiograph prior to use to confirm position. PROCEDURE SUMMARY: - Venous access with ultrasound guidance - Non-tunneled central venous catheter insertion. - Additional procedure(s): None PROCEDURE DETAILS: Pre-procedure Consent: Informed consent for the procedure including risks, benefits and alternatives was obtained and time-out was performed prior to the procedure. Preparation (MIPS): The site was prepared and draped using all elements of maximal sterile barrier technique including sterile gloves, sterile gown, cap, mask, large sterile sheet, sterile ultrasound probe cover, hand hygiene and cutaneous antisepsis with 2% chlorhexidine. Medical reason for site preparation exception (MIPS): Not applicable Anesthesia/sedation Level of anesthesia/sedation: No sedation Access Local anesthesia was administered. The vessel was sonographically evaluated and determined to be patent. Real time ultrasound was used to visualize needle entry into the vessel and a permanent image was stored. Vein accessed: Internal jugular vein Access technique: Micropuncture set with 21 gauge needle Catheter placement The access site was dilated and the catheter was placed into the vein over a wire. A sterile dressing was applied. Catheter placed: Bard triple lumen CVC Catheter size ([place]ese): 7 Catheter length (cm): 15 Catheter flush: Normal saline Catheter securement technique: Non-absorbable suture Contrast Contrast agent: None Radiation Dose None. Ultrasound guidance only. Additional Details Additional description of procedure: None Equipment details: None Specimens removed: None Estimated blood loss (mL): Less than 10 Standardized report: [email or web address] Attestation Signer name: Claire Holliday MD I attest that I was present for the entire procedure. I reviewed the stored images and agree with the report as written. Signed by: Claire Holliday MD on 12/18/2018 9:12 AM
[2018-12-18] MEDS: GUAIFENESIN 200 MG/10 ML UDC PO PRN ×3 (10:45→22:40)
--- NOTE | 2018-12-18 12:24 | Progress Note ---
DATE: 12/17/2018 SUBJECTIVE: The patient was seen on December 17. The patient is feeling much better today. No complaints. Still short of breath. He remains in intensive care unit. Again, I had a long discussion with him and his about the finding so far. REVIEW OF SYSTEMS: There is no new information. No new complaint. HEENT negative. Pulmonary negative. Cardiac negative. Blood cultures remain negative. PHYSICAL EXAMINATION: GENERAL: He is currently alert, oriented, does not seem to be in acute distress. VITAL SIGNS: Stable, currently afebrile. HEENT: Not icteric. NECK: Supple. CHEST: Clear. HEART: S1 and S2. No S3 or S4, but there is a systolic ejection murmur 2/6 at the apex. ABDOMEN: Soft. Bowel sounds present. No tenderness. EXTREMITIES: No edema. IMPRESSION: 1. Endocarditis, aortic valve. So far cultures are negative. 2. Pulmonary edema IV antibiotic. Continue vancomycin, Rocephin, and await the trough, which was adjusted probably would need aortic valve replacement. This was discussed with the patient at length. We will discuss with Cardiology, the question is when. Clinically he seems to be better, I think that is because of his improvement of his fluid status and sepsis. 3. We will follow. MD BONNIE Magallanes/ZAYRA /[id number]
--- NOTE | 2018-12-18 13:37 | NUR ---
spoke to Dr. Farrell regarding plan of care and possible transfer downtown for a valve replacement. states patient is doing better clinically and Dr. Farrell has spoken to Dr. Pardo who plans to cath patient and then initiate transfer towards the end of the week. CM to follow.
--- NOTE | 2018-12-18 14:06 | Progress Note ---
DATE: ADDENDUM: Mr. Mcgregor blood culture is showing gram-positive cocci. Clinically, he is improving. His white count is getting better, but his hemoglobin is 7.7. IMPRESSION: 1. Endocarditis with worsening acute congestive heart failure, but clinically better. Continue with vancomycin, Rocephin until we get identification of bacteria. Recheck on blood cultures. 2. When he first came, his sedimentation rate was 93. 3. Anemia of chronic disease. He is stable. 4. Thrombocytopenia. Also due to endocarditis and sepsis. 5. Acute on chronic congestive heart failure, probably. 6. Dr. Pardo is going to do a CT angiogram on him. 7. He still would need replacement of the valve, but depends on bacteremia and depend on his clinical progress. 8. High vancomycin trough adjusted yesterday. MD BONNIE Magallanes/ZAYRA /[id number]
[2018-12-18] MEDS ORDERED: FUROSEMIDE INJ 10 MG/ML 2 ML VIAL IV ONE (16:30)
--- NOTE | 2018-12-18 17:32 | Progress Note ---
DATE: 12/18/2018 Cardiology Progress Note SUBJECTIVE: The patient denies chest pain or shortness of breath. OBJECTIVE: VITAL SIGNS: Temperature 97.8 degrees, pulse 102, respiratory rate 24, blood pressure 104/44, and oxygen saturation 100% on 3 liters nasal cannula. GENERAL: Awake, alert, in no acute distress, ill-appearing, pale. LUNGS: Decreased breath sounds at the bases, otherwise clear to auscultation. No wheezes or crackles. CARDIOVASCULAR: Tachycardic, but regular. Soft systolic and diastolic murmurs are noted. ABDOMEN: Soft and nontender. EXTREMITIES: No edema. CARDIAC MEDICATIONS: Metoprolol tartrate 12.5 mg p.o. b.i.d. LABORATORY DATA: WBC 6.39, hemoglobin 7.7, hematocrit 24.1, and platelets 97. Sodium 131, potassium 3.9, chloride 103, CO2 of 21, BUN 17, and creatinine 0.82. TELEMETRY: Sinus tachycardia. IMPRESSION: 1. Acute systolic heart failure. 2. 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 Gram-positive cocci bacteremia and aortic valve endocarditis, identification is pending. 3. Anemia. RECOMMENDATIONS: Antibiotics per Infectious Disease. Monitor the patient on telemetry. He will need VALERIY and cardiac catheterization on this admission prior to possible transfer for aortic valve replacement. Continue current cardiac medications. Further recommendations pending test results. Continue supportive care. Thank you for this consult. We will continue to follow. Jenn Molina MD ABS/MODL /[id number]
--- NOTE | 2018-12-18 19:45 | NUR ---
Dr. Brandon notified of blood culture findings. Cardiology rounded and gave orders to lay patient flat for 30 mins. Patient tolerated laying flat. Plans for VALERIY and heart cath tomorrow if schedule allows. Patient NPO at midnight. Patient walked with physical therapy. Patient complaining of on and off coughing with clear frothy sputum. Dr. Eastman notified orders given for Lasix and cough medication.
[2018-12-18] MEDS: DOCUSATE SODIUM 100 MG CAP PO PRN (22:07)
[2018-12-19] VITALS (26 sets, daily range): BP systolic 93–120; BP diastolic 40–60
[2018-12-19] MEDS: ACETAMINOPHEN 325 MG TAB PO PRN (03:26)
[2018-12-19] MEDS: GUAIFENESIN 200 MG/10 ML UDC PO PRN ×2 (04:43→20:05)
[2018-12-19 05:27] LABS: BASOPHILS % 0.3 % (0.0-1.0); EOSINOPHILS # (AUTO) 0.2 (0.0-0.4); EOSINOPHILS % 2.7 % (0.0-6.0); HEMATOCRIT 23.8 % (38.2-49.6); HEMOGLOBIN 7.5 g/dL (14.0-18.0); LYMPHOCYTES # (AUTO) 0.9 (1.0-3.2); LYMPHOCYTES % 13.8 % (18.0-39.1); MEAN CORPUSCULAR HEMOGLOBIN 30.2 pg (28-32); MEAN CORPUSCULAR HGB CONC 31.5 g/dL (31-35); MONOCYTES # (AUTO) 0.3 (0.2-0.8); MONOCYTES % 4.2 % (4.4-11.3); NEUTROPHILS # (AUTO) 4.9 (2.1-6.9); NEUTROPHILS % 78.4 % (38.7-80.0); PLATELET COUNT 91 x10e3/uL (140-360); RED BLOOD COUNT 2.48 x10e6/uL (4.3-5.7); RED CELL DISTRIBUTION WIDTH 17.6 % (11.7-14.4)
[2018-12-19 05:42] LABS: INR 1.14; PROTHROMBIN TIME 15.2 seconds (11.9-14.5)
[2018-12-19 05:43] LABS: PARTIAL THROMBOPLASTIN TIME 37.1 seconds (23.8-35.5)
[2018-12-19 05:45] LABS: ANION GAP 10.8 mmol/L (8-16); BLOOD UREA NITROGEN 12 mg/dL (7-26); BUN/CREATININE RATIO 15 (6-25); CALCIUM 7.1 mg/dL (8.4-10.2); CARBON DIOXIDE 21 mmol/L (22-29); CHLORIDE 104 mmol/L (98-107); CREATINE KINASE 21 IU/L (30-200); CREATININE, SERUM 0.79 mg/dL (0.72-1.25); EST GLOMERULAR FILTRATION RATE > 60 ML/MIN (60-); GLUCOSE 99 mg/dL (74-118); POTASSIUM 3.8 mmol/L (3.5-5.1); SODIUM 132 mmol/L (136-145)
[2018-12-19] MEDS: CEFTRIAXONE SOD 1 GM/NS 50 ML 50 ML IV SCH ×2 (07:38→19:42)
[2018-12-19] MEDS: VANCOMYCIN 1GM/NS 250 ML 250 ML IV SCH (08:30)
[2018-12-19] MEDS: METOPROLOL TARTRATE 25 MG TAB PO SCH ×2 (08:30→16:45)
[2018-12-19] MEDS: PANTOPRAZOLE 40 MG 10ML VIAL IV SCH ×2 (08:30→16:45)
[2018-12-19] MEDS: HEPARIN SOD (PORCINE) 5,000 UNIT/ML VIAL SC SCH ×2 (08:33→22:16)
[2018-12-19] MEDS: SODIUM CHLORIDE 0.9% 1000ML 1,000 ML IV SCH (10:43)
[2018-12-19] MEDS ORDERED: BENZOCAINE 20% SPR 60 ML CAN ONE (12:45)
[2018-12-19] MEDS ORDERED: SODIUM CHLORIDE 0.9% 1000ML 1,000 ML ONE (12:45)
--- NOTE | 2018-12-19 13:13 | NUR ---
__1255 - pt received for VALERIY, placed on bedside monitoring. pt positioned for procedure. IV site patent to R neck ___1256____ - all responsible staff present, Timeout performed ___1257____ - hurricaine spray (spray 1) to oral cavity by XX ___1257____ - hurricaine spray (spray 2) to oral cavity by XX ___1259____ - bite block positioned and VALERIY probe passed __1303 - VALERIY probe removed , no gross trauma or distress observed __1308 - pt taken to ICU for further recovery Addendum: 12/19/18 at 1316 by Jarrod Ochoa RN HURRICAINE SPRAY X2 TO ORAL CAVITY BY [place] PUBLIC RELATIONS COUNSELOR
[2018-12-19] MEDS ORDERED: KETAMINE HCL INJ 50 MG/ML 10 ML VIAL ONE (14:59)
[2018-12-19] MEDS ORDERED: MIDAZOLAM HCL 2 MG/2 ML VIAL ONE (14:59)
--- NOTE | 2018-12-19 16:10 | NUR ---
will ask Labs for pcn ERNST
--- NOTE | 2018-12-19 16:48 | Progress Note ---
DATE: 12/19/2018 Cardiology Progress Note SUBJECTIVE: The patient denies chest pain or shortness of breath. He is n.p.o. for VALERIY today. There was no availability for cardiac catheterization in the lab. OBJECTIVE: VITAL SIGNS: Temperature 97 degrees, pulse 96, respiratory rate 16, blood pressure 94/43, and oxygen saturation 94% on 2 L nasal cannula. GENERAL: Awake and alert, in no acute distress. Ill-appearing. LUNGS: Decreased breath sounds at the bases, otherwise clear to auscultation. No wheezes or crackles. CARDIOVASCULAR: Tachycardic, but regular. Soft systolic and diastolic murmurs are present. ABDOMEN: Soft and nontender. EXTREMITIES: No edema. CARDIAC MEDICATIONS: Metoprolol tartrate 12.5 mg p.o. b.i.d. LABORATORY DATA: WBC 6.22, hemoglobin 7.5, hematocrit 23.8, and platelets 91. Sodium 132, potassium 3.8, chloride 104, CO2 21, BUN 12, and creatinine 0.79. Troponin I 0.680. TELEMETRY: Sinus tachycardia. IMPRESSION: 1. Acute systolic heart failure. 2. 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 3. Streptococcus viridans bacteremia and aortic valve endocarditis. 4. Anemia. RECOMMENDATIONS: Antibiotics per Infectious Disease. Monitor the patient on telemetry. VALERIY to be performed today. Due to lack of availability in the laboratory associate, plan for left heart catheterization likely tomorrow, if VALERIY confirms severe aortic insufficiency. Continue current cardiac medications. Continue supportive care. Thank you for this consult. We will continue to follow. Jenn Molina MD ABS/MODL /[id number]
--- NOTE | 2018-12-19 17:39 | Progress Note ---
DATE: SUBJECTIVE: Mr. Mcgregor is feeling better today. There are no new complaints. His breathing is better. His cultures grew Streptococcus viridans. LABORATORY DATA: White count is 6.2, hemoglobin 7.5. Sodium 132, potassium 3.8, creatinine 0.79. Repeat blood cultures are negative. MEDICATION LIST: Reviewed. PHYSICAL EXAMINATION: GENERAL: He is currently alert, oriented, does not seem to be in acute distress. VITAL SIGNS: Stable, afebrile. HEENT: He is not icteric. NECK: Supple. No JVD. No lymphadenopathy. No thyromegaly. CHEST: Clear bilateral. HEART: S1 and S2. No S3, S4, or murmur. ABDOMEN: Soft. Bowel sounds present. No tenderness. EXTREMITIES: No edema. SKIN: No rash. IMPRESSION: Streptococcus viridans, endocarditis in [employer] valve. We will change him to Rocephin. We will follow. Further recommendations to follow. MD BONNIE Magallanes/ZAYRA /[id number]
--- NOTE | 2018-12-19 18:40 | NUR ---
RN assumed care of patient at 1000. Patient went fore VALERIY today. Upon returning from VALERIY patient was coughing and having increased secretions. Dr. Eastman notified. No new orders. Dr. Molina called to see if patient could have dinner tonight. Orders given for low sodium diet tonight and then NPO at midnight for L heart cath tomorrow. Dr. Farrell rounded on patient and informed of blood culture results.
[2018-12-19] MEDS ORDERED: LIDOCAINE HCL 2% LOCAL INJ 5 ML SDV VIAL INJ ONE (18:45)
[2018-12-19] MEDS ORDERED: PROPOFOL IV EMULSION 10 MG/ML 20 ML VIAL ONE (18:45)
[2018-12-19] MEDS: DOCUSATE SODIUM 100 MG CAP PO PRN (20:05)
[2018-12-20] VITALS (20 sets, daily range): BP systolic 78–117; BP diastolic 34–61
[2018-12-20] MEDS: ACETAMINOPHEN 325 MG TAB PO PRN (00:20)
[2018-12-20] MEDS: SODIUM CHLORIDE 0.9% 1000ML 1,000 ML IV SCH ×3 (00:26→19:49)
[2018-12-20] MEDS: GUAIFENESIN 200 MG/10 ML UDC PO PRN ×2 (02:35→21:16)
--- NOTE | 2018-12-20 03:39 | NUR ---
Was contacted by Lul with patients assigned medical guard manager, Irene. Gave her updates & plan for patient at this time. She requested phone call every day or every other day to stay in touch with patients progress. She spoke with patient and . Will update clinical case manager tomorrow 12/20 evening shift. Company: [employer] CARPIOguard manager: Irene Hours: M-F 10-6:30, okay to leave voicemail with call back number for updates Number: [phone], EXT: [phone]
[2018-12-20 05:11] LABS: BASOPHILS % 0.5 % (0.0-1.0); EOSINOPHILS # (AUTO) 0.2 (0.0-0.4); EOSINOPHILS % 2.9 % (0.0-6.0); HEMATOCRIT 24.6 % (38.2-49.6); HEMOGLOBIN 7.7 g/dL (14.0-18.0); LYMPHOCYTES # (AUTO) 0.8 (1.0-3.2); LYMPHOCYTES % 12.1 % (18.0-39.1); MEAN CORPUSCULAR HEMOGLOBIN 30.3 pg (28-32); MEAN CORPUSCULAR HGB CONC 31.3 g/dL (31-35); MEAN CORPUSCULAR VOLUME 96.9 fL (81-99); MONOCYTES # (AUTO) 0.2 (0.2-0.8); MONOCYTES % 3.3 % (4.4-11.3); NEUTROPHILS # (AUTO) 5.4 (2.1-6.9); NEUTROPHILS % 80.6 % (38.7-80.0); PLATELET COUNT 89 x10e3/uL (140-360); RED BLOOD COUNT 2.54 x10e6/uL (4.3-5.7); RED CELL DISTRIBUTION WIDTH 18.4 % (11.7-14.4)
[2018-12-20 05:15] LABS: INR 1.16; PROTHROMBIN TIME 15.4 seconds (11.9-14.5)
[2018-12-20 05:16] LABS: PARTIAL THROMBOPLASTIN TIME 36.9 seconds (23.8-35.5)
[2018-12-20 05:24] LABS: ANION GAP 11.8 mmol/L (8-16); BLOOD UREA NITROGEN 8 mg/dL (7-26); BUN/CREATININE RATIO 11 (6-25); CALCIUM 7.4 mg/dL (8.4-10.2); CARBON DIOXIDE 21 mmol/L (22-29); CHLORIDE 105 mmol/L (98-107); CREATININE, SERUM 0.76 mg/dL (0.72-1.25); EST GLOMERULAR FILTRATION RATE > 60 ML/MIN (60-); GLUCOSE 101 mg/dL (74-118); POTASSIUM 3.8 mmol/L (3.5-5.1); SODIUM 134 mmol/L (136-145)
[2018-12-20 06:17] LABS: PLATELET ESTIMATE MARKEDLY DECREASED; PLATELET MORPHOLOGY COMMENT FEW LARGE
[2018-12-20 06:21] LABS: LYMPHOCYTES % (MANUAL) 60 % (19-48); MONOCYTES % (MANUAL) 40 % (3.4-9.0)
[2018-12-20] MEDS: CEFTRIAXONE SOD 1 GM/NS 50 ML 50 ML IV SCH (07:49)
[2018-12-20] MEDS: METOPROLOL TARTRATE 25 MG TAB PO SCH ×2 (08:21→17:15)
[2018-12-20] MEDS: PANTOPRAZOLE 40 MG 10ML VIAL IV SCH ×2 (08:21→17:15)
[2018-12-20] MEDS: HEPARIN SOD (PORCINE) 5,000 UNIT/ML VIAL SC SCH ×2 (08:22→20:37)
--- NOTE | 2018-12-20 08:46 | Diagnostic Imaging Report ---
EXAMINATION: CHEST SINGLE (PORTABLE) INDICATION: Aspiration COMPARISON: Multiple prior chest radiograph, most recently of 12/17/2018 FINDINGS: LINES/TUBES:EKG leads overlie the chest. LUNGS:The lungs are moderately inflated. There is perihilar fullness and indistinctness of the pulmonary vasculature. There is left basilar opacity silhouetting the left sotero diaphragm, most likely subsegmental atelectasis. PLEURA:No pleural effusion or pneumothorax. MEDIASTINUM:Cardiomediastinal silhouette is stably enlarged. BONES/SOFT TISSUES:No acute osseous injury. ABDOMEN:No free air under the diaphragm. IMPRESSION: Unchanged cardiomegaly and pulmonary edema. Signed by: Claire Holliday MD on 12/20/2018 8:43 AM
[2018-12-20] MEDS ORDERED: MIDAZOLAM HCL 2 MG/2 ML VIAL ONE ×2 (10:06→11:43)
[2018-12-20] MEDS ORDERED: FENTANYL CITRATE/PF 100MCG/2 ML INJ ONE (10:06)
[2018-12-20] MEDS ORDERED: VERAPAMIL HCL 2.5 MG/ML 2 ML VIAL ONE (10:06)
[2018-12-20] MEDS ORDERED: LIDOCAINE HCL 2% LOCAL 20 ML VIAL ONE (10:06)
[2018-12-20] MEDS ORDERED: SODIUM CHLORIDE 0.9% 1000ML 1,000 ML ONE (10:07)
[2018-12-20] MEDS ORDERED: HEPARIN SOD/SOD CHLORIDE 2,000 ML ONE (10:07)
[2018-12-20] MEDS ORDERED: IOPAMIDOL 370 MG/ML 200 ML INFUS..BTL INJ ONE (10:07)
--- NOTE | 2018-12-20 10:49 | NUR ---
pt transferred to [facility] via bed in stable condition.
[2018-12-20] MEDS ORDERED: FUROSEMIDE INJ 10 MG/ML 4 ML VIAL ONE (11:58)
--- NOTE | 2018-12-20 12:02 | NUR ---
Nutrition Intervention Note RD Recommendation(s) for Physician: - Advance diet as tolerated to a cardiac diet - Pt meets criteria for moderate protein calorie malnutrition Plan of Care: RD following, monitoring for tolerance and adequacy Nutrition reason for involvement: follow up RD Assessment 12/20: Follow up. 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 Per RN pt s/p VALERIY yesterday with plan to transfer to [facility] for MVR at some point. Pt NPO this am for procedure with 100% intake yesterday and 75% intake 12/18. No GI distress reported. Chart reviewed. Initial encounter with patient. Diet Hx: Pt has no known food allergies. Physical activity and function: Pt is able to walk. Nutrition - focused physical findings: Pt is dentate, overweight/obesity, 50 pound wt loss over past 4 months. DIET AIDE, Poor Po intake, lack of appetite ,dysgeusia, denies any loss of functional mobility besides just being SOB. Principal Problems/Diagnoses:anemia, hyponatremia, hypotension PMH: None GI:Non tender, no nausea or vomiting Skin: Intact skin Labs: 12/20: Na 3.4 Meds: protonix, abx, colace Ht:67 in. Wt:240.13lbs BMI:37.6kg/M2 IBW:148lbs Malnutrition Evaluation (12/16/2018) The patient meets criteria for MODERATE protein-calorie malnutrition. Energy intake: <75% of estimated energy requirements for >3 months Weight loss: >7.5% in 3 months (Acute) Fat loss: unable to evaluate Muscle loss: unable to evaluate Supporting Evidence: Fluid accumulation: None Functional Status: unable to evaluate Nutrition Prescription (Diet Order): NPO for procedure this am Estimated Nutritional Needs: 2183 calories/day (20 kcal/kg/BW) 135g protein/day ( 2g pro/kg/IBW) Diet Adequacy: Meeting fluid needs, meeting calorie needs, meeting protein needs- prior to procedure Diet Education Needs Assessment: Diet education not indicated, patient on temporary/transition diet. Nutrition Care Level: Moderate Nutrition Diagnosis: Malnutrition related to acute illness as evidenced by 50# involuntary wt loss. Goal: Patient will meet 75-100% of estimated needs by follow up Progress: Progressing Interventions: modified diet, Prescription medications Monitoring/Evaluation: Total energy intake, Total protein intake, Prescription medication, Modified diet, Weight change Signed: Paola Nunez RD, LD, CNSC
--- NOTE | 2018-12-20 12:15 | NUR ---
pt returned from labor relations manager AAOx4, slight SOB noted pt rec'd lasix 80mg SIVP prior to returning to ICU. no c/o at this time. will continue to monitor
--- NOTE | 2018-12-20 15:45 | NUR ---
Primary nurse was off case from 11am to 1545. Had given patient to Maddie CARPIO.
[2018-12-20] MEDS: GENTAMICIN 80MG/NS 100 ML 100 ML IV SCH (17:15)
[2018-12-20] MEDS: CEFTRIAXONE SOD 2 GM/NS 100 ML 100 ML IV SCH (18:22)
[2018-12-20] MEDS: DOCUSATE SODIUM 100 MG CAP PO PRN (18:23)
--- NOTE | 2018-12-20 21:10 | NUR ---
Sat up in chair x 1hr. Uriah fair. Became mildly SOB when getting back to bed.
--- NOTE | 2018-12-20 21:16 | NUR ---
Medicated with Robitussin for cough per request.
[2018-12-21] VITALS (24 sets, daily range): BP systolic 90–110; BP diastolic 29–81
--- NOTE | 2018-12-21 01:30 | Progress Note ---
DATE: 12/20/2018 Cardiology Progress Note SUBJECTIVE: The patient denies chest pain or shortness of breath, however, nursing staff reports he is short of breath with minimal activity such as getting back into bed from chair. OBJECTIVE: VITAL SIGNS: Temperature 98.6 degrees, pulse 114, respiratory rate 32, blood pressure 108/41, and oxygen saturation 94% on 2 L nasal cannula. GENERAL: Ill-appearing man, in no acute distress, awake and alert. LUNGS: Decreased breath sounds at the bases, otherwise clear to auscultation. No wheeze or crackles. HEART: Tachycardic, regular rate. Soft systolic and diastolic murmurs are present. ABDOMEN: Soft, nontender. EXTREMITIES: No edema. CARDIAC MEDICATIONS: Metoprolol tartrate 12.5 mg p.o. b.i.d. LABORATORY DATA: WBC 6.6, hemoglobin 7.7, hematocrit 24.6, platelets 89. Sodium 134, potassium 3.8, chloride 105, CO2 of 21, BUN 8, and creatinine 0.76. TELEMETRY: Sinus tachycardia with PVCs. IMPRESSION: 1. Acute systolic heart failure. 2. 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 3. Streptococcus viridans bacteremia and aortic valve endocarditis. 4. Anemia. RECOMMENDATIONS: Antibiotics per Infectious Disease, monitor patient closely on telemetry, cardiac catheterization without an evidence of obstructive coronary artery disease. Given his continued symptoms, plan to transfer patient to [facility] the [facility] for aortic valve replacement. In the meantime, continue current cardiac medications and start the patient on diuretics as LVEDP was elevated during catheterization and the patient continues to have dyspnea. Thank you for this consult. We will continue to follow. Jenn Molina MD ABS/MODL /[id number]
[2018-12-21] MEDS: GENTAMICIN 80MG/NS 100 ML 100 ML IV SCH (03:43)
[2018-12-21 04:18] LABS: BASOPHILS % 0.4 % (0.0-1.0); EOSINOPHILS # (AUTO) 0.2 (0.0-0.4); EOSINOPHILS % 2.4 % (0.0-6.0); HEMATOCRIT 25.4 % (38.2-49.6); HEMOGLOBIN 7.7 g/dL (14.0-18.0); LYMPHOCYTES # (AUTO) 0.9 (1.0-3.2); LYMPHOCYTES % 12.9 % (18.0-39.1); MEAN CORPUSCULAR HEMOGLOBIN 30.1 pg (28-32); MEAN CORPUSCULAR HGB CONC 30.3 g/dL (31-35); MEAN CORPUSCULAR VOLUME 99.2 fL (81-99); MONOCYTES # (AUTO) 0.3 (0.2-0.8); NEUTROPHILS # (AUTO) 5.5 (2.1-6.9); NEUTROPHILS % 79.7 % (38.7-80.0); PLATELET COUNT 96 x10e3/uL (140-360); RED BLOOD COUNT 2.56 x10e6/uL (4.3-5.7); RED CELL DISTRIBUTION WIDTH 18.5 % (11.7-14.4)
[2018-12-21 04:35] LABS: ANION GAP 13.6 mmol/L (8-16); BLOOD UREA NITROGEN 11 mg/dL (7-26); BUN/CREATININE RATIO 13 (6-25); CALCIUM 7.8 mg/dL (8.4-10.2); CARBON DIOXIDE 19 mmol/L (22-29); CHLORIDE 102 mmol/L (98-107); CREATININE, SERUM 0.82 mg/dL (0.72-1.25); EST GLOMERULAR FILTRATION RATE > 60 ML/MIN (60-); GLUCOSE 116 mg/dL (74-118); POTASSIUM 3.6 mmol/L (3.5-5.1); SODIUM 131 mmol/L (136-145)
[2018-12-21] MEDS: CEFTRIAXONE SOD 2 GM/NS 100 ML 100 ML IV SCH (05:00)
[2018-12-21] MEDS: FUROSEMIDE INJ 10 MG/ML 4 ML VIAL IV SCH ×3 (08:49→18:13)
[2018-12-21] MEDS: PANTOPRAZOLE 40 MG 10ML VIAL IV SCH ×2 (08:49→17:22)
[2018-12-21] MEDS: DOCUSATE SODIUM 100 MG CAP PO PRN (08:50)
[2018-12-21] MEDS: METOPROLOL TARTRATE 25 MG TAB PO SCH ×2 (09:52→21:35)
[2018-12-21] MEDS: HEPARIN SOD (PORCINE) 5,000 UNIT/ML VIAL SC SCH (10:03)
[2018-12-21] MEDS: SODIUM CHLORIDE 0.9% 1000ML 1,000 ML IV SCH (10:10)
--- NOTE | 2018-12-21 13:01 | NUR ---
Order to send to [facility] to care of Dr Kasia Gross. Called case management social worker and housekeeping worker to initiate transfer.
[2018-12-21] MEDS: CEFTRIAXONE SOD 1 GM/NS 50 ML 50 ML IV SCH (17:22)
--- NOTE | 2018-12-21 18:45 | NUR ---
Report received. Assumed care. Assessment done. See interventions.
[2018-12-21] MEDS: GUAIFENESIN 200 MG/10 ML UDC PO PRN (23:33)
--- NOTE | 2018-12-21 23:34 | NUR ---
Robitussin given per request for cough.
[2018-12-22] VITALS (26 sets, daily range): BP systolic 89–116; BP diastolic 33–79
--- NOTE | 2018-12-22 01:11 | NUR ---
Call to Dr. Molina. Advised of left lateral chest discomfort. BP 98/41. Advised to give Tylenol. Tylenol 650 po given.
[2018-12-22] MEDS: ACETAMINOPHEN 325 MG TAB PO PRN (01:13)
--- NOTE | 2018-12-22 02:21 | Progress Note ---
DATE: 12/21/2018 Cardiology Progress Note SUBJECTIVE: The patient denies chest pain, however, he does endorse dyspnea with minimal exertion moving around the bed. OBJECTIVE: VITAL SIGNS: Temperature 98.4 degrees, pulse 108, respiratory rate 26, blood pressure 101/39, and oxygen saturation 100% on 2 L nasal cannula. GENERAL: Ill-appearing man, in no acute distress, awake and alert. LUNGS: Decreased breath sounds at the bases, otherwise clear to auscultation. No wheeze or crackles. CARDIOVASCULAR: Tachycardic, regular. Soft systolic and diastolic murmurs are noted. ABDOMEN: Soft, nontender. EXTREMITIES: No edema. CARDIAC MEDICATIONS: 1. Metoprolol 12.5 mg p.o. q.12 hours. 2. Furosemide 40 mg IV b.i.d. LABORATORY DATA: WBC 6.95, hemoglobin 7.7, hematocrit 25.4, platelets 96. Sodium 131, potassium 3.6, chloride 102, CO2 of 19, BUN 11, creatinine 0.82. TELEMETRY: Sinus tachycardia. IMPRESSION: 1. Acute systolic heart failure. 2. 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 3. Streptococcus viridans bacteremia and aortic valve endocarditis. 4. Anemia. 5. Thrombocytopenia. RECOMMENDATIONS: Antibiotics per Infectious Disease. Monitor the patient closely on telemetry. Cardiac catheterization showed evidence of obstructive coronary artery disease given his continued symptoms. The patient will be transferred to [facility] the [facility] for aortic valve replacement. Accepting physician is Dr. Kasia Gross. Continue current cardiac medications in the meantime. Petechiae are noted on the right upper and left lower extremities, likely suspect this is most likely secondary to acute endocarditis. The patient is noted to be thrombocytopenic, but this has been present since admission and is not significantly changed. No evidence of thrombosis or bleeding has been noted. Place SCDs instead. Consider Hematology evaluation. Thank you for this consult. We will continue to follow. Jenn Molina MD ABS/MODL /[id number]
[2018-12-22] MEDS: CEFTRIAXONE SOD 1 GM/NS 50 ML 50 ML IV SCH ×2 (05:28→16:13)
[2018-12-22] MEDS: FUROSEMIDE INJ 10 MG/ML 4 ML VIAL IV SCH ×2 (08:39→16:11)
[2018-12-22] MEDS: PANTOPRAZOLE 40 MG 10ML VIAL IV SCH ×2 (08:40→16:13)
[2018-12-22] MEDS: METOPROLOL TARTRATE 25 MG TAB PO SCH ×2 (08:43→21:00)
--- NOTE | 2018-12-22 09:16 | NUR ---
Obtained choice from patient for transfer [facility] elevator constructor supervisor Luis has initiated the transfer. Addendum: 12/22/18 at 0917 by Lupis Solorio CM done 12/21 at 1300
--- NOTE | 2018-12-22 09:18 | NUR ---
SPOKE WITH MIDDLE SCHOOL TEACHER, RAN WHO IS MAKING F/U CALL TO [facility] TO CHECK ON BED STATUS
--- NOTE | 2018-12-22 23:26 | Progress Note ---
DATE: 12/22/2018 Cardiology Progress Note SUBJECTIVE: The patient denies chest pain, but does endorse shortness of breath. OBJECTIVE: VITAL SIGNS: Temperature 97.6 degrees, pulse 111, respiratory rate 16, blood pressure 89/63, oxygen saturation 100% on 2 L nasal cannula. GENERAL: An ill-appearing man, in no acute distress. Awake and alert. LUNGS: Decreased breath sounds at the bases, otherwise clear to auscultation. No wheezes or crackles. CARDIOVASCULAR: Tachycardic, but regular. Soft systolic and diastolic murmurs are noted. ABDOMEN: Soft, nontender. EXTREMITIES: No edema. CARDIAC MEDICATIONS: 1. Pantoprazole 40 mg IV b.i.d. 2. Furosemide 40 mg IV b.i.d. 3. Metoprolol tartrate 12.5 mg p.o. q.12 hours. LABORATORY DATA: None today. TELEMETRY: Sinus tachycardia. IMPRESSION: 1. Acute systolic heart failure. 2. 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 3. Streptococcus viridans bacteremia and aortic valve endocarditis. 4. Anemia. 5. Thrombocytopenia. RECOMMENDATIONS: Antibiotics per Infectious Disease. Monitor the patient closely on telemetry. Cardiac catheterization was without evidence of obstructive coronary artery disease. VALERIY revealed bicuspid valve with aortic valve endocarditis and severe aortic regurgitation. Given his symptoms, the patient is pending transfer to [facility] at the [facility] for aortic valve replacement. Check labs. We will increase Lasix, monitor thrombocytopenia. Currently on SCDs for DVT prophylaxis while hip panel is pending. Thank you for this consult. We will continue to follow. Jenn Molina MD ABS/MODL /[id number]
[2018-12-23] VITALS (22 sets, daily range): BP systolic 97–127; BP diastolic 34–70
[2018-12-23] MEDS: GUAIFENESIN 200 MG/10 ML UDC PO PRN ×2 (00:04→00:08)
[2018-12-23 05:09] LABS: BASOPHILS % 0.5 % (0.0-1.0); EOSINOPHILS # (AUTO) 0.2 (0.0-0.4); EOSINOPHILS % 1.8 % (0.0-6.0); HEMATOCRIT 26.2 % (38.2-49.6); HEMOGLOBIN 8.3 g/dL (14.0-18.0); MEAN CORPUSCULAR HEMOGLOBIN 30.4 pg (28-32); MEAN CORPUSCULAR HGB CONC 31.7 g/dL (31-35); MONOCYTES # (AUTO) 0.4 (0.2-0.8); MONOCYTES % 4.2 % (4.4-11.3); NEUTROPHILS # (AUTO) 6.8 (2.1-6.9); NEUTROPHILS % 80.7 % (38.7-80.0); PLATELET COUNT 151 x10e3/uL (140-360); RED BLOOD COUNT 2.73 x10e6/uL (4.3-5.7); RED CELL DISTRIBUTION WIDTH 18.7 % (11.7-14.4)
[2018-12-23 05:20] LABS: ANION GAP 12.5 mmol/L (8-16); BLOOD UREA NITROGEN 15 mg/dL (7-26); BUN/CREATININE RATIO 17 (6-25); CALCIUM 8.1 mg/dL (8.4-10.2); CARBON DIOXIDE 23 mmol/L (22-29); CHLORIDE 96 mmol/L (98-107); CREATININE, SERUM 0.89 mg/dL (0.72-1.25); EST GLOMERULAR FILTRATION RATE > 60 ML/MIN (60-); GLUCOSE 111 mg/dL (74-118); POTASSIUM 3.5 mmol/L (3.5-5.1); SODIUM 128 mmol/L (136-145)
[2018-12-23] MEDS: CEFTRIAXONE SOD 1 GM/NS 50 ML 50 ML IV SCH ×2 (05:55→16:43)
[2018-12-23] MEDS: METOPROLOL TARTRATE 25 MG TAB PO SCH (09:00)
[2018-12-23] MEDS: FUROSEMIDE INJ 10 MG/ML 4 ML VIAL IV SCH ×2 (09:28→16:43)
[2018-12-23] MEDS: PANTOPRAZOLE 40 MG 10ML VIAL IV SCH ×2 (09:29→16:43)
--- NOTE | 2018-12-23 12:12 | NUR ---
SPOKE WITH DR COOLEY ABOUT PT STATUS, SPOKE WITH NANNY/HOUSEHOLD MANAGER DR ROCHA TO ALLOW BOTH DOCS TO TALK ABOUT PT, ASKED ABOUT DOWNGRADE TO SEE IF IMCU BED IS AVAILABLE FOR PT TO TRANSFER, SPOKE WITH TRAVIS XIAO WHOM CALLED AND WAS TOLD IT DOES NOT MATTER STILL NO ICU OR IMCU BEDS AVAILABLE. STILL PENDING TRANSFER TO [facility] DUE TO NO BED.
--- NOTE | 2018-12-23 13:13 | Diagnostic Imaging Report ---
EXAMINATION: CHEST SINGLE (PORTABLE) INDICATION: CHF. COMPARISON: 12/20/2018. FINDINGS: LINES/TUBES:Right neck central venous catheter with distal tip projected on the cavoatrial junction. LUNGS:The lungs are hypoinflated. Bilateral pulmonary venous congestion and mild alveolar edema. Bibasilar atelectasis. PLEURA:Bilateral small pleural effusions. Effusion. No pneumothorax. MEDIASTINUM:Cardiomediastinal silhouette is stably enlarged. BONES/SOFT TISSUES:No acute osseous injury. ABDOMEN:No free air under the diaphragm. IMPRESSION: Bilateral pulmonary venous congestion with small, increasing bilateral pleural effusions. Signed by: Dr. Flavia Martinez M.D. on 12/23/2018 1:09 PM
--- NOTE | 2018-12-23 19:43 | NUR ---
Hematology / Dr Neo standby coverage 4Ts score = 1. Less likely HIT. Reasonable to await HIT ab. Fondaparinux in interim, check FOBT, check US liver. More likely that low platelets are from sepsis + microangiopathy. r/o other however, especially being pre-operative. Dr Noe is available for urgent matters. Thanks.
--- NOTE | 2018-12-23 20:23 | NUR ---
Report given to Diane at [facility] for transfer. Transfer to [facility] 6 [address] bed 1.
[2018-12-23] MEDS ORDERED: TEMAZEPAM 15 MG CAP PO SCH (21:00)
--- NOTE | 2018-12-23 21:31 | Progress Note ---
DATE: 12/23/2018 Cardiology Progress Note SUBJECTIVE: The patient denies chest pain or shortness of breath. He reports his dyspnea on exertion is improving. OBJECTIVE: VITAL SIGNS: Temperature 97.4 degrees, pulse 106, respiratory rate 35, blood pressure 102/35, and oxygen saturation 100% on 2 liters nasal cannula. GENERAL: Awake, alert, ill-appearing man, in no acute distress. LUNGS: Decreased breath sounds at the bases, otherwise clear to auscultation. No wheezes or crackles. CARDIOVASCULAR: Tachycardic, but regular. Soft systolic and diastolic murmurs are noted. ABDOMEN: Soft and nontender. EXTREMITIES: No edema. CARDIAC MEDICATIONS: 1. Lasix 80 mg IV b.i.d. 2. Metoprolol tartrate 12.5 mg p.o. every 12 hours. LABORATORY DATA: WBC 8.43, hemoglobin 8.3, hematocrit 26.2, and platelets 151. Sodium 128, potassium 3.5, chloride 96, CO2 of 23, BUN 15, and creatinine 0.89. TELEMETRY: Sinus tachycardia. IMPRESSION: 1. Acute systolic heart failure. 2. 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 3. Streptococcus viridans bacteremia and aortic valve endocarditis. 4. Anemia. 5. Thrombocytopenia. RECOMMENDATIONS: Antibiotics per Infectious Disease. Monitor the patient closely on telemetry. Cardiac catheterization was without evidence of obstructive coronary artery disease. VALERIY revealed bicuspid valve with aortic valve endocarditis and severe aortic regurgitation. Given his symptoms, the patient is pending transfer to [facility] at the [facility] for aortic valve replacement. Continue diuresis. The patient's thrombocytopenia is most likely secondary to his infection, however, HIT panel has been sent as the patient will need anticoagulation for surgical AVR. I appreciate Hematology evaluation. Thank you for this consult. We will continue to follow. Jenn Molina MD ABS/MODL /[id number]
--- NOTE | 2018-12-23 22:46 | NUR ---
Patient escorted off unit by EMS personnel at [id number] via stretcher. Patient accounted for all belongings and is in his possession. Patient notified of transfer. No signs of acute distress noted. fashion supervisor and electrical discharge machine operator aware of patient's discharge to [facility]. Updated covering nurse sujit Gaspar of patient's condition and lab results.
--- NOTE | 2018-12-24 02:03 | Consultation ---
DATE OF CONSULTATION: 12/23/2018 Hematology Consult Coverage. Standby coverage for Dr Anuel Noe MD. REASON FOR REFERRAL: Thrombocytopenia. HISTORY OF PRESENT ILLNESS: Mr. Mcgregor is a pleasant 43-year-old gentleman admitted with shortness of breath and tachycardia. BNP was 1300 and CAT scan showed pulmonary edema. Echo showed severe aortic valve insufficiency, bicuspid aortic valve with large vegetation. The patient is since awaiting transfer to outside hospital. The patient is noted to have thrombocytopenia. He also has hematocrit 23, anemia, MCV 92, platelets 110 on the admit. On the following day, his hematocrit was 18.8 and platelets were 64, which is low as platelet count that he had. The patient had reticulocyte count 4.4%. At this point, heparin was stopped after the initial four days of treatment and heparin-induced thrombocytopenia antibody was sent off, which is still pending. Blood culture grew gram-positive cocci consistent with streptococcus viridans. The patient denies any connective tissue disease. He denies any known liver disease. He did see a blood doctor in the past. PAST MEDICAL HISTORY: Mostly unremarkable in the past. MEDICATIONS: Per list. ALLERGIES: NO KNOWN DRUG ALLERGIES NOTED. SOCIAL HISTORY: The patient drinks a 6-pack of beer on weekends. No smoking, no drugs. FAMILY HISTORY: Noncontributory. REVIEW OF SYSTEMS: Unremarkable except for as stated above. His teeth are good, where he notes without any poor food hygiene. OBJECTIVE: VITAL SIGNS: Noted and reviewed per the chart record. GENERAL: In no acute distress, alert and calm. HEENT: Normocephalic. NECK: Supple. Neck midline. LUNGS: Bilateral air entry. CARDIOVASCULAR: S1, S2. ABDOMEN: Soft. EXTREMITIES: There is 2+ edema. INTEGUMENT: No rash except for fine petechial rash throughout the body, especially in the arms and legs. IMPRESSION AND PLAN: 1. Thrombocytopenia. Most likely due to infection that could be component of microangiopathy, especially noting the multiple petechiae that are likely related to the endocarditis, less likely drug-induced. The most common score to check for heparin-induced thrombocytopenia,4 Ts score = 1, put him at very low risk. If his platelets were increasing, consideration are to resume anticoagulation prophylaxis with fondaparinux-- while awaiting final heparin-induced thrombocytopenia antibody. Now that the patient is expectant for likely cardiac bypass in the near future and transfer to [facility] facility. Check ultrasound of liver. 2. endocarditis, streptococcal 3. anemia 4. mild alcohol intake Dr. Noe available for urgent matters. Thank you very much for this consult. Please call me or Dr. Noe for questions. MD JOO Baltazar/ZAYRA /[id number] MTDD
[2018-12-24] MEDS ORDERED: FONDAPARINUX SODIUM 2.5 MG/0.5 ML SYR SQ SCH (09:00)
== END 2018-12-23 22:27 | disposition short-term general hospital (02) | DRG 871 ==
LOC: ER 13:23 → ERHOLD 15:39 → ICU 17:31
PROC: 30243N1 Transfusion of Nonautologous Red Blood Cells into Central Vein, Percutaneous Approach (ICD-10-PCS; principal; 2018-12-15)
PROC: 02HV33Z Insertion of Infusion Device into Superior Vena Cava, Percutaneous Approach (ICD-10-PCS; 2018-12-15)
PROC: 4A023N7 Measurement of Cardiac Sampling and Pressure, Left Heart, Percutaneous Approach (ICD-10-PCS; 2018-12-20)
PROC: B2111ZZ Fluoroscopy of Multiple Coronary Arteries using Low Osmolar Contrast (ICD-10-PCS; 2018-12-20)
PROC: B2151ZZ Fluoroscopy of Left Heart using Low Osmolar Contrast (ICD-10-PCS; 2018-12-20)
DX: A40.8 Other streptococcal sepsis (principal); I50.21 Acute systolic (congestive) heart failure; I33.0 Acute and subacute infective endocarditis; J96.00 Acute respiratory failure, unspecified whether with hypoxia or hypercapnia; E87.1 Hypo-osmolality and hyponatremia; D69.6 Thrombocytopenia, unspecified; D50.0 Iron deficiency anemia secondary to blood loss (chronic); I11.0 Hypertensive heart disease with heart failure; I73.9 Peripheral vascular disease, unspecified; F10.10 Alcohol abuse, uncomplicated; R23.3 Spontaneous ecchymoses; I25.10 Atherosclerotic heart disease of native coronary artery without angina pectoris; D63.8 Anemia in other chronic diseases classified elsewhere
CPT/HCPCS: 36415; 36556; 36600; 71045; 71260; 74470; 76937; 80048; 80053; 80170; 80202; 81001; 82270; 82550; 82553; 82728; 82805; 83540; 83605; 83880; 84466; 84484; 85025; 85045; 85610; 85651; 85730; 86022; 86140; 86850; 86880; 86886; 86900; 86920; 87040; 87071; 87186; 87205; 87390; 87400; 93005; 93306; 93307; 93312; 93325; 93458; 99152; 99153; 99285; C1751; C1887; G0433; G0435; J0456; J0696; J1580; J1644; J1652; J1940; J2001; J2250; J3010; J3370; J7030; J7050; P9016; Q9967